=== PATIENT | female | born 1980 | race Caucasian/White ===

== ENCOUNTER 2018-05-06 23:07 | Emergency (ER) | payer SELFPAY ==
[2018-05-07] MEDS ORDERED: Ketorolac Tromethamine 30 MG/ML VIAL ONE (00:09)
--- NOTE | 2018-05-07 07:46 | RAD ---
THREE VIEWS LEFT WRIST: DATE: 05/07/2018. HISTORY: Trauma. The patient presents with left shoulder wrist pain after a fall 2 days ago. FINDINGS: No fracture or dislocation is seen. No other osseous abnormality is seen. IMPRESSION: No acute fracture is seen involving the left wrist. If the patient's pain persists, followup imaging is advised to exclude a radiographically occult fracture. POS: [facility]
--- NOTE | 2018-05-07 08:08 | RAD ---
LEFT SHOULDER 3 VIEWS: DATE: 05/06/2018. COMPARISON: None. HISTORY: Fall, trauma, pain. FINDINGS: Mild degenerative change of the left acromioclavicular joint with inferior osteophyte formation. N w idening of the AC or CC interspace. No displaced fracture or dislocation. IMPRESSION: No acute osseous abnormality. POS: [facility]
== END 2018-05-07 01:50 | disposition home or self-care (01) ==
LOC: ERS 23:07
DX: M25.512 Pain in left shoulder (principal); M25.532 Pain in left wrist; I10 Essential (primary) hypertension; F17.210 Nicotine dependence, cigarettes, uncomplicated; W17.89XA Other fall from one level to another, initial encounter
CPT/HCPCS: 96372; J1885